=== PATIENT | male | born 2000 | race Caucasian/White ===

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

== ENCOUNTER → 2018-02-10 | Outpatient (CLI) | payer OTHER ==
--- NOTE | 2018-02-10 11:10 | Diagnostic Imaging Report ---
INDICATION: Asthma. The patient is scheduled for PFTs. FINDINGS: PA and lateral views. The lungs are well-aerated without air trapping. There are no infiltrates. No evidence of segmental atelectasis. There is no hilar adenopathy. The heart is not enlarged. There is no pulmonary edema. No pneumothorax or pleural effusions. No bony abnormalities. IMPRESSION: Normal PA and lateral chest. Dictated by: Dictated on workstation # [id number]
== END ==
LOC: RAD 10:35
PROVIDERS: ATTEND Nurse Practitioner Family
DX: J45.909 Unspecified asthma, uncomplicated (principal)
CPT/HCPCS: 71046

== ENCOUNTER → 2018-02-25 | Outpatient (CLI) | payer OTHER ==
[~2018-02-25] MED LIST: RT-ALBUTEROL SULF 2.5 MG/3 ML PRE-MIX VIAL INH ONE
== END ==
LOC: RT 15:14
PROVIDERS: ATTEND Nurse Practitioner Family
DX: Z87.09 Personal history of other diseases of the respiratory system (principal)
CPT/HCPCS: 94060; 94640; 94726; 94729

== ENCOUNTER → 2018-03-06 | Outpatient (CLI) | payer OTHER ==
[~2018-03-06] MED LIST changes: +METHACHOLINE CHLORIDE 100MG/VIAL IH NR; +RT-SODIUM CHL INHALATION 3 ML VIAL ONE
== END ==
LOC: RT 08:26
PROVIDERS: ATTEND Nurse Practitioner Family
DX: Z87.09 Personal history of other diseases of the respiratory system (principal)
CPT/HCPCS: 94070; 95070